=== PATIENT | male | born 1930 ===

== ENCOUNTER 2018-03-08 12:46 | Emergency (ER) | payer MEDICARE, OTHER ==
[~2018-03-08] VITALS: Ht 182.9 cm; Wt 110.0 kg
[2018-03-08 15:14] VITALS: BP 171/96
== END 2018-03-08 15:17 | disposition home or self-care (01) ==
LOC: ER 12:46
DX: S20.212A Contusion of left front wall of thorax, initial encounter (principal); V49.59XA Passenger injured in collision with other motor vehicles in traffic accident, initial encounter; Y93.89 Activity, other specified; Y92.413 State road as the place of occurrence of the external cause; Y99.9 Unspecified external cause status
CPT/HCPCS: 71101; 93005; 99284